=== PATIENT | male | born 1985 | race Caucasian/White ===

== ENCOUNTER 2017-12-06 08:03 | Outpatient (CLI) | payer BC ==
--- NOTE | 2017-12-06 10:19 | ULT ---
ULTRASOUND LIVER WITH DOPPLER: Date: 12/06/17 HISTORY: Abnormal LFTs. FINDINGS: The liver demonstrates increased echogenicity consistent with fatty infiltration. No focal mass or in trahepatic ductal dilatation seen. No gallstones, gallbladder wall thickening, or pericholecystic flu id is identified. The common duct measures 3.0 mm in diameter. The pancreas is not well visualized. T he spleen measures 11.7 cm in length and is normal. No free fluid is noted. There is normal flow and spectral waveforms in the hepatic, portal, and splenic vasculature. IMPRESSION: 1. Fatty liver. 2. No evidence of cholelithiasis. POS: [facility]
== END 2017-12-06 08:04 | disposition home or self-care (01) ==
LOC: SCSULT 08:03
PROVIDERS: ATTEND Internal Medicine Gastroenterology
DX: K76.0 Fatty (change of) liver, not elsewhere classified (principal); R63.5 Abnormal weight gain
CPT/HCPCS: 76705